=== PATIENT | female | born 1995 | race African-American/Black ===

== ENCOUNTER 2017-09-22 22:28 | Emergency (ER) | payer OTHER ==
[~2017-09-22] VITALS: Ht 167.6 cm; Wt 71.2 kg
[2017-09-22 22:43] VITALS: BP 115/76
[2017-09-22] MEDS ORDERED: MOBIC15 MG PO (23:27)
== END 2017-09-22 23:53 | disposition home or self-care (01) ==
LOC: ER 22:28
DX: M25.551 Pain in right hip (principal); I10 Essential (primary) hypertension

== ENCOUNTER 2020-05-23 19:16 | Emergency (ER) | payer OTHER ==
[~2020-05-23] VITALS: Ht 170.2 cm; Wt 83.0 kg
[~2020-05-23 19:16] MED LIST: MOBIC15 MG PO
[2020-05-23] MEDS ORDERED: IBUPROFEN 600600 M1 PO (20:45)
[2020-05-23 20:57] VITALS: BP 106/70
--- NOTE | 2020-05-24 07:07 | EKG ---
[address] [address] ELECTROCARDIOGRAM REPORT Name: ANTHONYSILVANA Tse Room #: [facility]#: [id number] Admission: 05/23/20 Attend Phys: Discharge: 05/23/20 Date of : [birth year] Report #: [id number] [facility] ED Test Date: 2020-05-23 Test Time: 20:00:24 Pat Name: SILVANA CRUZ Department: Room: Gender: F [employer] Tender: dexter : 1995 Requested By: Sofi Jonas Order Number: [id number] MD: Wing Olguin Measurements Intervals [place] Rate: 100 P: 48 CO: 135 QRS: 17 QRSD: 90 T: -3 QT: 355 QTc: 458 Interpretive Statements Sinus tachycardia No previous ECG available for comparison Electronically Signed On 05-24-2020 7:07:29 CDT by Wing Olguin [email or web address] <ELECTRONICALLY SIGNED> By: Wing Olguin MD, [facility] 05/24/20 [id number] 99 Wing Olguin MD, FACC /EPI
== END 2020-05-23 20:58 | disposition home or self-care (01) ==
LOC: ER 19:16
DX: S20.211A Contusion of right front wall of thorax, initial encounter (principal); I10 Essential (primary) hypertension; Z79.899 Other long term (current) drug therapy; V43.62XA Car passenger injured in collision with other type car in traffic accident, initial encounter; Y93.89 Activity, other specified; Y92.488 Other paved roadways as the place of occurrence of the external cause; Y99.8 Other external cause status